=== PATIENT | male | born 1955 | race Caucasian/White ===

== ENCOUNTER 2016-07-07 19:11 | Observation (INO) | payer OTHER ==
[2016-07-06 23:50] VITALS: BP 98/71; PULSE 87; RESP 20; TEMP 97; O2SAT 94
[2016-07-07 19:35] VITALS: BP 111/62; PULSE 109; RESP 18; TEMP 97.6; O2SAT 91
[2016-07-07 19:55] LABS: AUTOMATED NEUTROPHIL # 7.8 TH/MM3 (1.8-7.7); BASOPHIL % 0.3 % (0.0-2.0); EOSINOPHIL % 0.1 % (0.0-4.0); HEMATOCRIT 39.7 % (39.0-51.0); LYMPH % 9.5 % (9.0-44.0); LYMPHOCYTE # 0.9 TH/MM3 (1.0-4.8); MEAN CORPUSCULAR HEMOGLOBIN 27.7 PG (27.0-34.0); NEUT % 86.1 % (16.0-70.0); PLATELET COUNT 204 TH/MM3 (150-450); RED BLOOD COUNT 4.73 MIL/MM3 (4.50-5.90); RED CELL DISTRIBUTION WIDTH 13.1 % (11.6-17.2); WHITE BLOOD COUNT 9.1 TH/MM3 (4.0-11.0)
[2016-07-07 19:59] VITALS: BP 95/69; PULSE 112; RESP 18; TEMP 97.6; O2SAT 91
--- NOTE | 2016-07-07 20:01 | PD ---
HPI Chief Complaint: Allergic/Adverse Reaction Time Seen by Provider: 19:41 Travel History International Travel<30 days: No Contact w/Intl Traveler<30days: No Traveled to known affect area: No History of Present Illness HPI 60-year-old male here for evaluation of lightheadedness, some weakness, and purplish lips. Symptoms started at around noon today, and were worse at around 4:00 PM. The patient reports that he was exposed to aerosolized right Her today while at work. He had similar symptoms several years ago when he was exposed to isocyanate. In triage it was noted that his O2 saturation was 84% on room air. He denies dyspnea. No chest pain. No history of cardio pulmonary disease. [facility] Social History Tobacco Use: No Allergies-Medications (Allergen,Severity, Reaction): Coded Allergies: Isocyanate HDI (Verified Allergy, Unknown, 07/07/16) Reported Meds & Prescriptions Reported Meds & Active Scripts Active Reported Nexium (Esomeprazole DR) 40 Mg Capdr 40 Mg PO DAILY Review of Systems Except as stated in HPI: all other systems reviewed are Neg Physical Exam Narrative GENERAL: Pleasant, well-developed, well-nourished, comfortable, awake, alert, no acute distress. SKIN: Focused skin assessment warm/dry. Lips are cyanotic. Rest of body is without cyanosis. HEAD: Atraumatic. Normocephalic. EYES: Pupils equal and round. No scleral icterus. No injection or drainage. ENT: Mucous membranes pink and moist. Cyanotic lips. NECK: Trachea midline. No JVD. CARDIOVASCULAR: Regular rate and rhythm. RESPIRATORY: No accessory muscle use. Clear to auscultation. Breath sounds equal bilaterally. GASTROINTESTINAL: Abdomen soft, non-tender, nondistended. MUSCULOSKELETAL: No obvious deformities. No clubbing. No cyanosis. No edema. NEUROLOGICAL: Awake and alert. No obvious cranial nerve deficits. Motor grossly within normal limits. Normal speech. PSYCHIATRIC: Appropriate mood and affect; insight and judgment normal. Data Data Last Documented VS Vital Signs Date Time Temp Pulse Resp B/P Pulse Ox O2 Delivery O2 Flow Rate FiO2 07/07/16 21:00 92 Nasal Cannula 2.00 07/07/16 21:00 96 20 92/67 07/07/16 19:59 97.6 Orders Complete Blood Count With Diff (07/07/16 19:45) Comprehensive Metabolic Panel (07/07/16 19:45) D-Dimer (07/07/16 19:45) Act Partial Throm Time (Ptt) (07/07/16 19:45) Prothrombin Time / Inr (Pt) (07/07/16 19:45) Arterial Blood Gas (Abg) (07/07/16 19:45) Iv Access Insert/Monitor (07/07/16 19:45) Ecg Monitoring (07/07/16 19:45) Oximetry (07/07/16 19:45) Oxygen Administration (07/07/16 19:45) Chest, Single Ap (07/07/16 19:45) Sodium Chlor 0.9% 1000 Ml Inj (Ns 1000 M (07/07/16 20:15) Place In Observation (07/07/16 ) Vital Signs (Adult) Q4H (07/07/16 20:55) Activity Oob With Assistance (07/07/16 20:55) Facilities Clerk / Telemetry .CONTINUOUS (07/07/16 20:55) Diet Heart Healthy (07/08/16 Breakfast) Sodium Chloride 0.9% Flush (Ns Flush) (07/07/16 21:00) Sodium Chloride 0.9% Flush (Ns Flush) (07/07/16 21:00) Naloxone Inj (Narcan Inj) (07/07/16 21:00) Resp Oxygen Abraham C Titrat 1-4 L (07/07/16 ) Pantoprazole (Protonix) (07/08/16 09:00) Admit Order (Ed Use Only) (07/07/16 21:05) Labs Laboratory Tests Test 07/07/16 07/07/16 19:45 20:00 White Blood Count 9.1 TH/MM3 Red Blood Count 4.73 MIL/MM3 Hemoglobin 13.1 GM/DL Hematocrit 39.7 % Mean Corpuscular Volume 84.0 FL Mean Corpuscular Hemoglobin 27.7 PG Mean Corpuscular Hemoglobin 33.0 % Concent Red Cell Distribution Width 13.1 % Platelet Count 204 TH/MM3 Mean Platelet Volume 8.4 FL Neutrophils (%) (Auto) 86.1 % Lymphocytes (%) (Auto) 9.5 % Monocytes (%) (Auto) 4.0 % Eosinophils (%) (Auto) 0.1 % Basophils (%) (Auto) 0.3 % Neutrophils # (Auto) 7.8 TH/MM3 Lymphocytes # (Auto) 0.9 TH/MM3 Monocytes # (Auto) 0.4 TH/MM3 Eosinophils # (Auto) 0.0 TH/MM3 Basophils # (Auto) 0.0 TH/MM3 CBC Comment DIFF FINAL Differential Comment Prothrombin Time 11.5 SEC Prothromb Time International 1.0 RATIO Ratio Activated Partial 25.4 SEC Thromboplast Time D-Dimer Quantitative (PE/DVT) 0.19 MG/L FEU Sodium Level 141 MEQ/L Potassium Level 4.2 MEQ/L Chloride Level 106 MEQ/L Carbon Dioxide Level 25.4 MEQ/L Anion Gap 10 MEQ/L Blood Urea Nitrogen 17 MG/DL Creatinine 1.20 MG/DL Estimat Glomerular Filtration 61 ML/MIN Rate Random Glucose 110 MG/DL Calcium Level 8.9 MG/DL Total Bilirubin 0.6 MG/DL Aspartate Amino Transf 29 U/L (AST/SGOT) Alanine Aminotransferase 28 U/L (ALT/SGPT) Alkaline Phosphatase 52 U/L Total Protein 7.2 GM/DL Albumin 4.1 GM/DL Blood Gas Puncture Site RT RADIAL Blood Gas Patient Temperature 98.6 Blood Gas HCO3 23 mmol/L Blood Gas Base Excess -0.7 mmol/L Blood Gas Oxygen Saturation 83 % Arterial Blood pH 7.43 Arterial Blood Partial 36 mmHG Pressure CO2 Arterial Blood Partial 96 mmHG Pressure O2 Arterial Blood Oxygen Content 15.3 Vol % Arterial Blood 0.2 % Carboxyhemoglobin Arterial Blood Methemoglobin 11.6 % Blood Gas Hemoglobin 13.0 G/DL Oxygen Delivery Device NASAL CANNULA Blood Gas Liter Flow 2 L/M [facility] Medical Decision Making Medical Screen Exam Complete: Yes Emergency Medical Condition: Yes Interpretation(s) EKG: Sinus, rate 108, normal axis, normal intervals, poor R-wave progression, no acute ischemic abnormality. Differential Diagnosis Methemoglobinemia, carbon monoxide poisoning, cyanide poisoning, pulmonary embolism less likely, ACS, anemia Narrative Course Initial vital signs show heart rate 109, blood pressure 111/62, pulse ox 83% on room air, oral temp of 97.6F. CBC is unremarkable. CMP is unremarkable. ABG shows pH 7.43, PCO2 36, PO2 96, met hemoglobin 11.6%, carboxyhemoglobin 0.2% Chest x-ray: No acute cardiopulmonary disease. Poisoning control contacted, and I spoke with the on-call lumite injector. She recommends admitting the patient for overnight observation on nasal cannula only. No methylene blue as the patient is currently resting comfortably awake, alert, no respiratory distress. He is a little bit lightheaded, but his symptoms are not severe enough to warrant methylene blue at this time. Case discussed with hospitalist Dr. Alonso who will admit the patient to her service for overnight observation with repeat ABG in the morning. Patient was made aware of all findings and plan for admission. Diagnosis Primary Impression: Methemoglobinemia Micheal Claire MD July 07, 2016 20:01
[2016-07-07 20:03] LABS: CHLORIDE 106 MEQ/L (98-107); POTASSIUM 4.2 MEQ/L (3.5-5.1); SODIUM (NA) 141 MEQ/L (136-145)
--- NOTE | 2016-07-07 20:04 | RADHPO ---
EXAM DATE/TIME: 07/07/2016 19:53 [place] COMPARISON: No previous studies available for comparison. INDICATIONS : Syncopal episode, weakness. MEDICAL HISTORY : None. SURGICAL HISTORY : None. ENCOUNTER: Initial ACUITY: 1 day PAIN SCORE: 0/10 LOCATION: chest FINDINGS: A single view of the chest demonstrates the lungs to be symmetrically aerated without evidence of mas s, infiltrate or effusion. The cardiomediastinal contours are unremarkable. Osseous structures are intact. CONCLUSION: No evidence of acute cardiopulmonary disease. Giovanny Zavala MD on July 07, 2016 at 20:02 Board Certified Radiologist. This report was verified electronically.
[2016-07-07 20:07] LABS: ANION GAP 10 MEQ/L (5-15); BICARBONATE 25.4 MEQ/L (21.0-32.0); BLOOD UREA NITROGEN 17 MG/DL (7-18)
[2016-07-07 20:10] LABS: ALT (GPT) 28 U/L (12-78); AST (GOT) 29 U/L (15-37); GLOMERULAR FILTRATION RATE 61 ML/MIN (>89)
[2016-07-07 20:13] LABS: ALKALINE PHOSPHATASE 52 U/L (45-117)
[2016-07-07] MEDS ORDERED: NEXI40CA PO (20:13)
[2016-07-07 20:14] LABS: TOTAL BILIRUBIN ADULT 0.6 MG/DL (0.2-1.0)
[2016-07-07 20:15] LABS: BLOOD GAS BASE EXCESS -0.7 mmol/L (-2-2); BLOOD GAS CARBOXYHEMOGLOBIN 0.2 % (0-4); BLOOD GAS HCO3 23 mmol/L (22-26); BLOOD GAS METHEMOGLOBIN 11.6 % (0-2); BLOOD GAS O2 HGB SATURATION 83 % (90-100); BLOOD GAS OXYGEN CONTENT 15.3 Vol % (12.0-20.0); BLOOD GAS PCO2 36 mmHG (38-42); BLOOD GAS PO2 96 mmHG (61-120); TEMP CORR TO 98.6
[2016-07-07] MEDS ORDERED: SODIUM CHLOR 0.9% 1000 ML INJ 1,000 ML IV ONE (20:15)
[2016-07-07 20:16] LABS: CRITICAL VALUE YES; DRAW SITE RT RADIAL; LITER FLOW 2 L/M; NUMBER OF ARTERIAL PUNCTURES 2; OXYGEN DEVICE NASAL CANNULA; STAT YES; ULNAR PULSE PRESENT
[2016-07-07 20:18] LABS: HEMO FLAGS DIFF FINAL
[2016-07-07 21:00] VITALS: BP 92/67; PULSE 96; RESP 20; O2SAT 92
[2016-07-07] MEDS ORDERED: NALOXONE HCL 0.4 MG/ML AMP IV PRN (21:00)
[2016-07-07] MEDS ORDERED: SODIUM CHLORIDE 0.9% FLUSH 10 ML FLUSH IV FLUSH PRN (21:00)
[2016-07-07] MEDS: SODIUM CHLORIDE 0.9% FLUSH 10 ML FLUSH IV FLUSH SCH (21:00)
[2016-07-07 21:20] LABS: APTT (PATIENT) 25.4 SEC (24.3-30.1); PROTHROMBIN TIME - PATIENT 11.5 SEC (9.8-11.6)
[2016-07-07 22:07] VITALS: BP 93/74
--- NOTE | 2016-07-07 22:34 | EKG ---
Date Performed: 07/07/2016 Time Performed: 19:36:38 PTAGE: 60 years EKG: Sinus tachycardia Poor R wave progression - probable normal variant Borderline ECG NO PREVIOUS TRACING DOCTOR: Trent Thomas Interpretating Date/Time 07/07/2016 22:32:56
[2016-07-07 22:50] VITALS: BP 98/71; PULSE 87; RESP 20; TEMP 97; O2SAT 94
[2016-07-07 23:00] VITALS: PULSE 87
[2016-07-08 04:00] VITALS: BP 106/74; PULSE 89; RESP 20; TEMP 96.1; O2SAT 95
[2016-07-08 08:00] VITALS: BP 134/94; PULSE 74; RESP 18; TEMP 97.2; O2SAT 93
[2016-07-08 08:39] LABS: BLOOD GAS BASE EXCESS -1.5 mmol/L (-2-2); BLOOD GAS CARBOXYHEMOGLOBIN 0.8 % (0-4); BLOOD GAS HCO3 23 mmol/L (22-26); BLOOD GAS METHEMOGLOBIN 1.7 % (0-2); BLOOD GAS O2 HGB SATURATION 93 % (90-100); BLOOD GAS OXYGEN CONTENT 15.9 Vol % (12.0-20.0); BLOOD GAS PCO2 41 mmHG (38-42); BLOOD GAS PO2 113 mmHG (61-120); CRITICAL VALUE NO; DRAW SITE RT RADIAL; LITER FLOW 2 L/M; NUMBER OF ARTERIAL PUNCTURES 1; OXYGEN DEVICE NASAL CANNULA; STAT NO; TEMP CORR TO 98.6; ULNAR PULSE PRESENT
[2016-07-08 08:58] VITALS: PULSE 75
[2016-07-08] MEDS ORDERED: PANTOPRAZOLE SOD 40 MG DELAYED RELEASE TAB PO SCH (09:00)
[2016-07-08] MEDS: SODIUM CHLORIDE 0.9% FLUSH 10 ML FLUSH IV FLUSH SCH (09:05)
[2016-07-08 10:08] VITALS: O2SAT 96
--- NOTE | 2016-07-08 10:26 | HHI.HP ---
[facility] Physician Christina Reis MD Admission Diagnosis methemoglobinemia Diagnoses: (1) Methemoglobinemia Chief Complaint: Lightheadedness and dizziness Travel History International Travel<30 Days: No Contact w/Intl Traveler <30 Da: No Traveled to Known Affected Are: No History of Present Illness 60-year-old male with a history of GERD him to the ED yesterday for evaluation of lightheadedness, dizziness and bluish lips after exposure to isocyanide. 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 However yesterday around 12 PM he stopped by a shop where his care was being sprayed with a derivative of isocyanide. He was only exposed to it for only 10 minutes. Patient return to work, around 2 PM as a student up he became lightheaded and dizzy however did not have any loss of consciousness. He was noted to have bluish lips by his coworkers. Around 6 PM patient went to a walk-in clinic the pulse ox was obtained and patient advised to seek medical intervention to the nearest emergency department. While in the ED, patient was found to have an ABG maintain methemoglobin of 11.6 for which poison control was called and patient's started on nasal cannula 2 L of oxygen. During my exam , this morning patient has no complaint of chest pain or shortness of breath. He denies any dizziness. Review of Systems Other 12 systems reviewed and are negative except for the one mentioned in the history of present illness Past Family Social History Past Medical History GERD Past Surgical History Rhinoplasty Reported Medications Nexium (Esomeprazole DR) 40 Mg Capdr 40 Mg PO DAILY Allergies: Coded Allergies: Isocyanate HDI (Verified Allergy, Unknown, 07/07/16) Family History Both parents lived into their 90s and denied any heart disease Social History Patient denies tobacco, alcohol or illicit drug intake Physical Exam Vital Signs Vital Signs Date Time Temp Pulse Resp B/P Pulse Ox O2 Delivery O2 Flow Rate FiO2 07/08/16 10:08 96 Nasal Cannula 2.00 07/08/16 08:00 97.2 74 18 134/94 93 07/08/16 04:00 96.1 89 20 106/74 95 07/07/16 23:00 87 07/07/16 22:50 97.0 87 20 98/71 94 07/07/16 22:07 92 20 93/74 07/07/16 21:00 92 Nasal Cannula 2.00 07/07/16 21:00 96 20 92/67 92 Nasal Cannula 2 07/07/16 20:06 107 18 94 Nasal Cannula 2 07/07/16 19:59 97.6 112 18 95/69 91 07/07/16 19:35 97.6 109 18 111/62 91 Nasal Cannula 2 07/07/16 19:35 92 Nasal Cannula 2 Physical Exam GENERAL: This is a well-nourished, well-developed patient, in no apparent distress. SKIN: No rashes, ecchymoses or lesions. Cool and dry. HEAD: Atraumatic. Normocephalic. No temporal or scalp tenderness. EYES: Pupils equal round and reactive. Extraocular motions intact. No scleral icterus. No injection or drainage. ENT: Nose without bleeding, purulent drainage or septal hematoma. Throat without erythema, tonsillar hypertrophy or exudate. Uvula midline. Airway patent. NECK: Trachea midline. No JVD or lymphadenopathy. Supple, nontender, no meningeal signs. CARDIOVASCULAR: Regular rate and rhythm without murmurs, gallops, or rubs. RESPIRATORY: Clear to auscultation. Breath sounds equal bilaterally. No wheezes , rales, or rhonchi. GASTROINTESTINAL: Abdomen soft, non-tender, nondistended. No hepato-splenomegaly , or palpable masses. No guarding. MUSCULOSKELETAL: Extremities without clubbing, cyanosis, or edema. No joint tenderness, effusion, or edema noted. No calf tenderness. Negative Homans sign bilaterally. NEUROLOGICAL: Awake and alert. Cranial nerves II through XII intact. Motor and sensory grossly within normal limits. Five out of 5 muscle strength in all muscle groups. Normal speech. Laboratory Laboratory Tests Test 07/07/16 07/07/16 07/08/16 19:45 20:00 08:30 White Blood Count 9.1 Red Blood Count 4.73 Hemoglobin 13.1 Hematocrit 39.7 Mean Corpuscular Volume 84.0 Mean Corpuscular Hemoglobin 27.7 Mean Corpuscular Hemoglobin 33.0 Concent Red Cell Distribution Width 13.1 Platelet Count 204 Mean Platelet Volume 8.4 Neutrophils (%) (Auto) 86.1 Lymphocytes (%) (Auto) 9.5 Monocytes (%) (Auto) 4.0 Eosinophils (%) (Auto) 0.1 Basophils (%) (Auto) 0.3 Neutrophils # (Auto) 7.8 Lymphocytes # (Auto) 0.9 Monocytes # (Auto) 0.4 Eosinophils # (Auto) 0.0 Basophils # (Auto) 0.0 CBC Comment DIFF FINAL Differential Comment Prothrombin Time 11.5 Prothromb Time International 1.0 Ratio Activated Partial 25.4 Thromboplast Time D-Dimer Quantitative (PE/DVT) 0.19 Sodium Level 141 Potassium Level 4.2 Chloride Level 106 Carbon Dioxide Level 25.4 Anion Gap 10 Blood Urea Nitrogen 17 Creatinine 1.20 Estimat Glomerular Filtration 61 Rate Random Glucose 110 Calcium Level 8.9 Total Bilirubin 0.6 Aspartate Amino Transf 29 (AST/SGOT) Alanine Aminotransferase 28 (ALT/SGPT) Alkaline Phosphatase 52 Total Protein 7.2 Albumin 4.1 Blood Gas Puncture Site RT RADIAL RT RADIAL Blood Gas Patient Temperature 98.6 98.6 Blood Gas HCO3 23 23 Blood Gas Base Excess -0.7 -1.5 Blood Gas Oxygen Saturation 83 93 Arterial Blood pH 7.43 7.37 Arterial Blood Partial 36 41 Pressure CO2 Arterial Blood Partial 96 113 Pressure O2 Arterial Blood Oxygen Content 15.3 15.9 Arterial Blood 0.2 0.8 Carboxyhemoglobin Arterial Blood Methemoglobin 11.6 1.7 Blood Gas Hemoglobin 13.0 12.0 Oxygen Delivery Device NASAL CANNULA NASAL CANNULA Blood Gas Liter Flow 2 2 Result Diagram: 07/07/16194407/07/161944 Imaging Last Impressions Chest X-Ray 07/07/161944 Signed Impressions: Service Date/Time: Thursday, July 07, 2016 19:53 - CONCLUSION: No evidence of acute cardiopulmonary disease. Giovanny Zavala MD Assessment and Plan Problem List: (1) Methemoglobinemia ICD Code: D74.9 Status: Acute Assessment and Plan 60-year-old man with Methemoglobinemia Chest x-ray noted and review by me without any cardio pulmonary disease Admission ABG with Methemoglobin 11.6 however repeat of 1.7 post treatment with 2 L nasal cannula oxygen Otherwise, Coags, CBC and BMP unremarkable Patient's condition resolved and vitals remained stable GERD Patient to continue outpatient medications Patient will be discharged home today Discharge patient to home Condition on discharge: Improved Regular Diet as tolerated Ad Gricelda activity Rx written: None Follow-up with primary care physician in 1 week Code Status Full code Discussed Condition With Patient Dale Reis MD July 08, 2016 10:26
[2016-07-08 12:00] VITALS: BP 119/81; PULSE 70; RESP 18; TEMP 97.2; O2SAT 93
== END 2016-07-08 11:55 | disposition home or self-care (01) ==
LOC: PHED 19:11 → PHEDA 21:05 → PH3A 22:16
PROVIDERS: ADMIT Hospitalist; ATTEND Hospitalist
DX: D74.9 Methemoglobinemia, unspecified (principal); K21.9 Gastro-esophageal reflux disease without esophagitis; R94.31 Abnormal electrocardiogram [ECG] [EKG]
CPT/HCPCS: 36600; 71010; 80053; 82805; 85025; 85379; 85610; 85730; 93005; 96360; 99285; G0378; J7030

== ENCOUNTER 2017-11-22 03:01 | Observation (INO) ==
--- NOTE | 2017-11-22 03:25 | ED ---
HPI General Chief Complaint: Chest Pain Stated Complaint: Chest pain x 1/2 hr Time Seen by Provider: 11/22/17 03:14 Source: patient and family Mode of arrival: ambulatory Limitations: no limitations History of Present Illness HPI narrative: 62-year-old male presents to the emergency department by private transportation the care of his spouse for evaluation of chest pain. Patient rates his pain 3/10 in intensity but at home was 7/10 in intensity and awaken him from sleep. Patient states he felt well all day Thursday with no concerns or complaints or injury. Patient states he was awakened from sleep and went up to go the bathroom and symptoms do not improve so took ibuprofen and 181 mg dose of aspirin without symptom improvement. Denies any referred neck jaw back shoulder arm or abdominal pain. Denies any shortness of breath sweats nausea or vomiting. No near syncope syncope or dizziness. No pleuritic chest pain or worsening of symptoms with deep inspiratory effort or movement. Patient states pain is tight squeeze dull and retrosternal. No recent long distance travel protracted bedrest or surgical procedure. Patient denies personal history of tobaccoism hypertension dyslipidemia diabetes or premature onset heart disease in the family. Parents lived to their 90s. Patient is otherwise in good health. Patient is unable to identify exacerbating or alleviating factors. MD complaint: chest pain STEMI Alert: No Onset (ago): minute(s) Duration: constant Onset: awoke with symptoms Pain location: substernal Severity: moderate Quality: tightness and dull Pain radiation: none Relieving factors: nothing Exacerbating factors: nothing Context: other (denies) Treatments prior to arrival chest pain: aspirin (81 mg) and other (ibuprofen) Related Data Home Medications Medication Instructions Recorded Confirmed aspirin [Aspirin Childrens] 81 mg PO DAILY 11/22/17 11/22/17 ibuprofen 600 mg PO TID 11/22/17 11/22/17 saw palmetto 320 mg PO DAILY 11/22/17 11/22/17 Allergies Allergy/AdvReac Type Severity Reaction Status Date / Time Isocyanate HDI Allergy Rash Uncoded 11/22/17 03:14 Review of Systems ROS: all other systems reviewed are negative PMFSH History History Provided By: Patient (methemoglobinemia) Social History Social History Substance History: No History of Abuse Second Hand Smoke Exposure: No Smoking Status: Former smoker How Often Do You Have a Drink Containing Alcohol: Monthly or less Recent Travel in [facility] within the Last 8 Weeks: No Recent Out of Country Travel within the Last 8 Weeks: No Exam Narrative Exam Narrative: GENERAL: Well-nourished, well-developed patient. SKIN: Focused skin assessment warm/dry. HEAD: Normocephalic. EYES: No scleral icterus. No injection or drainage. NECK: Supple, trachea midline. No JVD or lymphadenopathy. CARDIOVASCULAR: Regular rate and rhythm without murmurs, gallops, or rubs. RESPIRATORY: Breath sounds equal bilaterally. No accessory muscle use. GASTROINTESTINAL: Abdomen soft, non-tender, nondistended. MUSCULOSKELETAL: No cyanosis, or edema. BACK: Nontender without obvious deformity. No CVA tenderness. Course Initial Documented Vital Signs Temperature 98.2 F 11/22/17 03:07 Pulse Rate 69 11/22/17 03:07 Respiratory Rate 16 11/22/17 03:07 Blood Pressure 139/100 H 11/22/17 03:07 Pulse Oximetry 99 11/22/17 03:07 Last Documented Vital Signs Temperature 98.2 F 11/22/17 03:07 Pulse Rate 72 11/22/17 04:19 Respiratory Rate 16 11/22/17 04:19 Blood Pressure 111/84 11/22/17 04:19 Pulse Oximetry 98 11/22/17 04:19 Medical Decision Making [facility] Narrative Medical decision making narrative: 62-year-old male presents to the emergency department with retrosternal chest pain presently 3/10 in intensity tightness dullness nonradiating without shortness of breath nausea vomiting diaphoresis no syncope or syncope. Patient placed on cardiac/vascular sonographer with continuous pulse oximetry IV access obtained specimens collected and sent for resulting patient ordered to receive aspirin 162 mg by mouth as well as sublingual nitroglycerin to be administered to evaluate for resolution of chest pain. EKG performed sinus rhythm rate [address] elevation injury pattern or ectopy noted. At 4:18 AM patient is chest pain-free pain is 0/10 in intensity after 3 sublingual nitroglycerin. Chest x-ray reveals no acute process and first set of cardiac enzymes are found to be in normal range. Patient is informed of imaging results lab results and EKG and recommendation for chest pain center protocol observation admission with which she is agreeable call placed to [facility] Dr Ezio VUONG. Medical Screen Exam Complete: Yes Emergency Medical Condition: Yes Differential Diagnosis Differential Diagnosis: Chest pain, atypical chest pain, ACS, SC, PE, dissection , aneurysm, esophageal spasm, cholecystitis, pancreatitis, peptic ulcer disease , gastritis Medical Records Medical records reviewed: Yes I reviewed the patient's medical records. Lab Data Lab results reviewed: Yes I reviewed the patient's lab results. Result diagrams: 11/22/17 03:10 11/22/17 03:10 Lab Results 11/22/17 11/22/17 11/22/17 Range/Units 03:10 03:10 03:10 CBC w Diff Auto diff final WBC 5.8 (4.0-11.0) th/mm3 RBC 4.78 (4.50-5.90) mil/mm3 Hgb 13.6 (13.0-17.0) gm/dL Hct 41.3 (39.0-51.0) % MCV 86.3 (80.0-100.0) fL MCH 28.4 (27.0-34.0) pg MCHC 32.9 (32.0-36.0) % RDW 12.9 (11.6-17.2) % Plt Count 212 (150-450) th/mm3 MPV 8.9 (7.0-11.0) fL Neut % (Auto) 56.1 (16.0-70.0) % Lymph % (Auto) 32.9 (9.0-44.0) % [place] % (Auto) 8.1 H (0.0-8.0) % Eos % (Auto) 2.3 (0.0-4.0) % Baso % (Auto) 0.6 (0.0-2.0) % Neut # (Auto) 3.3 (1.8-7.7) th/mm3 Lymph # (Auto) 1.9 (1.0-4.8) th/mm3 [place] # (Auto) 0.5 (0.0-0.9) th/mm3 Eos # (Auto) 0.1 (0.0-0.4) th/mm3 Baso # (Auto) 0.0 (0.0-0.2) th/mm3 WBC Differential . Differential Comment . Sodium 143 (136-145) meq/L Potassium 3.9 (3.5-5.1) meq/L Chloride 105 (98-107) meq/L Carbon Dioxide 30.1 (21.0-32.0) meq/L Anion Gap 8 (5-15) meq/L BUN 13 (7-18) mg/dL Creatinine 1.30 (0.60-1.30) mg/dL Estimated GFR 56 L (>89) mL/min Random Glucose 97 (74-106) mg/dL Calcium 8.9 (8.5-10.1) mg/dL Magnesium 2.4 (1.5-2.5) mg/dL Total Bilirubin 0.4 (0.2-1.0) mg/dL AST 10 L (15-37) U/L ALT 25 (12-78) U/L Alkaline Phosphatase 57 (45-117) U/L Total Creatine Kinase 71 (39-308) U/L Troponin I Less than 0.02 L (0.02-0.05) ng/mL B-Natriuretic Peptide 11 (0-100) pg/mL Total Protein 7.0 (6.4-8.2) g/dL Albumin 3.9 (3.4-5.0) g/dL Lipase 198 (73-393) U/L Imaging Data Radiologist's impression: Chest X-Ray 11/22/17 03:14 CONCLUSION: 1. No acute abnormality or significant interval change. ECG Data EKG Prior to Arrival: No Attestation: I personally reviewed and interpreted this ECG as follows: Prior ECG tracings: not available for review Interpretation: EKG: Normal sinus rhythm rate [address] elevation injury pattern or ectopy noted Discharge Plan Discharge Disposition Patient Disposition: 30 Still Patient Discharge Condition Condition: Stable Discharge Details Diagnosis: Chest pain Physicians Team ED Provider: Jackie Ayoub Primary Care Provider: Donny Jackson Attending Provider: Shell Holguin Status ED Status: Admitted Observation Patient
[2017-11-22 03:48] LABS: Baso % (Auto) 0.6 % (0.0-2.0); Eos # (Auto) 0.1 th/mm3 (0.0-0.4); Eos % (Auto) 2.3 % (0.0-4.0); Hematocrit 41.3 % (39.0-51.0); Hemoglobin 13.6 gm/dL (13.0-17.0); Lymph # (Auto) 1.9 th/mm3 (1.0-4.8); Lymph % (Auto) 32.9 % (9.0-44.0); Mean Corpuscular HGB Conc 32.9 % (32.0-36.0); Mean Corpuscular Hemoglobin 28.4 pg (27.0-34.0); Mean Corpuscular Volume 86.3 fL (80.0-100.0); Mean Platelet Volume 8.9 fL (7.0-11.0); Mono # (Auto) 0.5 th/mm3 (0.0-0.9); Mono % (Auto) 8.1 % (0.0-8.0); Neut # (Auto) 3.3 th/mm3 (1.8-7.7); Neut % (Auto) 56.1 % (16.0-70.0); Platelet Count 212 th/mm3 (150-450); Red Blood Count 4.78 mil/mm3 (4.50-5.90); Red Cell Distribution Width 12.9 % (11.6-17.2); White Blood Count 5.8 th/mm3 (4.0-11.0)
[2017-11-22 03:59] LABS: Chloride 105 meq/L (98-107); Potassium 3.9 meq/L (3.5-5.1); Sodium 143 meq/L (136-145)
--- NOTE | 2017-11-22 03:59 | XR ---
EXAM DATE: 11/22/2017 3:47 AM EDT AGE/SEX: 62 years / Male INDICATIONS: Chest pain. CLINICAL DATA: This is the patient's initial encounter. Patient reports that signs and symptoms have been present for 1 day and indicates a pain score of 4/10. MEDICAL/SURGICAL HISTORY: None. None. COMPARISON: [facility], CHEST SINGLE AP, 07/07/2016. . FINDINGS: No new focal pleural or parenchymal opacities. The cardiomediastinal contours are unremarkable. Osse ous structures are intact. CONCLUSION: 1. No acute abnormality or significant interval change. Electronically signed by: Torrey Ron MD 11/22/2017 3:58 AM EDT
[2017-11-22] MEDS ORDERED: Sodium Chlor 0.9% Inj 500 ML IV.SIG SCH (04:00)
[2017-11-22 04:03] LABS: Calcium 8.9 mg/dL (8.5-10.1)
[2017-11-22 04:04] LABS: Albumin 3.9 g/dL (3.4-5.0); Anion Gap 8 meq/L (5-15); Blood Urea Nitrogen 13 mg/dL (7-18); Carbon Dioxide 30.1 meq/L (21.0-32.0); Glucose,Random 97 mg/dL (74-106); Lipase 198 U/L (73-393); Magnesium 2.4 mg/dL (1.5-2.5)
[2017-11-22 04:06] LABS: Alanine Aminotransferase 25 U/L (12-78); Aspartate Aminotransferase 10 U/L (15-37)
[2017-11-22 04:07] LABS: Glomerular Filtration Rate 56 mL/min (>89)
[2017-11-22 04:09] LABS: Alkaline Phosphatase 57 U/L (45-117)
[2017-11-22 04:10] LABS: Creatine Kinase 71 U/L (39-308)
[2017-11-22 04:50] LABS: Activated Partial Thrombo Time 26.9 sec (24.3-30.1); INR 1.1 Ratio; Prothrombin Time 10.7 sec (9.8-11.6)
[2017-11-22 07:58] LABS: Creatine Kinase 55 U/L (39-308)
[2017-11-22] MEDS ORDERED: Aspirin 325 MG Tablet PO SCH (09:00)
--- NOTE | 2017-11-22 09:50 | P.HP ---
History of Present Illness Primary Care Physician: Donny Jackson MD Chief Complaint: Chest pain History of Present Illness: 62-year-old male with known history of enlarged prostate who presented the hospital because acute onset of chest pain. Patient states that he was in normal state of health and went to bed approximately 9 PM last night. Patient woke up at 3 AM in order to use the restroom. Patient was having difficulty time urinating and had to strain in order to urinate. When he is walking back to the bed he started developing a gripping type chest pain in his lower mid chest which she ranks as 7/10 on pain scale. The patient denied any radiation to the neck, back, shoulder, arm. Denied any nausea, vomiting, diaphoresis, shortness of breath, dyspnea, lightheadedness, dizziness. Patient states that after 15 minutes the pain he got up and took 3 Tylenol and one aspirin. Patient states that he waited another 15 minutes without any resolution of the pain so he came to emergency department for evaluation upon evaluation emergency department patient was given aspirin, nitroglycerin. After the second nitroglycerin and administration of oxygen the patient states that his pain resolved completely. Patient has not had any recurrence. Patient had workup done and did not indicate any acute coronary syndrome. Troponins remain negative. Patient was recommended observation chest pain center. - Diagnosis (1) Chest pain Review of Systems All other systems reviewed negative except as stated in HPI Cardiovascular: Reports chest pain [facility] - History History Provided By: Patient - Medical History Medical History: Medical History (Last Reviewed 11/22/17 @ 09:48 by NASREEN Chau) History of prostate disorder - Surgical History Surgical History: Surgical History (Last Reviewed 11/22/17 @ 09:48 by NASREEN Chau) History of cataract surgery - Family History Family History: Family History (Last Updated 11/22/17 @ 09:41 by NASREEN Chau) Mother Family history of Alzheimer's disease Father History of diabetes mellitus - Tobacco History Second Hand Smoke Exposure: No Tobacco Use In Past 30 Days: No Smoking Status: Never smoker - Alcohol History How Often Do You Have a Drink Containing Alcohol: Never - Substance Use History Substance History: No History of Abuse - Travel History Recent Travel in the [place] Within the Last 8 Weeks: No Recent Travel Out of the Country Within the Last 8 Weeks: No - Immunization History Tetanus Immunization: Unable to Assess Hx Influenza Vaccine This Season: Yes Medications and Allergies Active Medications: Active Medications Aspirin (Aspirin) 325 mg PO DAILY [facility] Last Admin: 11/22/17 09:03 Dose: 325 mg Nitroglycerin (Nitrostat Sl) 0.4 mg SL Q5M PRN PRN Reason: CHEST PAIN Sodium Chloride (Ns Flush) 2 ml IV.FLUSH UNSCH PRN PRN Reason: FLUSH AFTER USING IV ACCESS Sodium Chloride (Ns Flush) 2 ml IV.FLUSH BID [facility] Last Admin: 11/22/17 09:03 Dose: 2 ml Sodium Chloride (Ns Flush) 2 ml IV.FLUSH PRN PRN PRN Reason: FLUSH AFTER USING IV ACCESS Allergies Allergy/AdvReac Type Severity Reaction Status Date / Time Isocyanate HDI Allergy Rash Uncoded 11/22/17 03:14 Home Medications Medication Instructions Recorded Confirmed Type aspirin [Aspirin Childrens] 81 mg PO DAILY 11/22/17 11/22/17 History ibuprofen 600 mg PO TID 11/22/17 11/22/17 History saw palmetto 320 mg PO DAILY 11/22/17 11/22/17 History Exam Vital signs: Vital Signs 11/22/17 03:07 11/22/17 03:10 11/22/17 03:19 Temperature 98.2 F Pulse Rate 69 72 Respiratory Rate 16 Blood Pressure 139/100 H Pulse Oximetry 99 99 11/22/17 03:20 11/22/17 03:25 11/22/17 03:30 Temperature Pulse Rate 66 Respiratory Rate 18 16 Blood Pressure 142/98 H 137/78 Pulse Oximetry 99 98 11/22/17 03:43 11/22/17 03:45 11/22/17 03:50 Temperature Pulse Rate 72 Respiratory Rate 16 16 16 Blood Pressure 102/80 Pulse Oximetry 11/22/17 04:19 11/22/17 05:56 11/22/17 07:15 Temperature 97.4 F L 98.9 F Pulse Rate 72 60 61 Respiratory Rate 16 18 21 Blood Pressure 111/84 120/76 123/82 Pulse Oximetry 98 96 95 11/22/17 08:18 Temperature Pulse Rate Respiratory Rate Blood Pressure Pulse Oximetry 96 Intake & Output 11/21/17 11/22/17 11/22/17 18:59 06:59 18:59 Intake Total 500 / 500 0 / 0 Output Total 200 / 200 Balance 500 / 500 -200 / -200 Weight 80 kg Intake: IV 500 / 500 NS Inj 500 ML @ 50 mls/hr IV. 500 / 500 SIG .Q10H ROBIN Rx#:[id number] Oral 0 / 0 Output: Urine 200 / 200 Other: # Voids 1 Date of Last Bowel Movement 11/21/17 Weight On Admission 80 kg Narrative: GENERAL: Well-developed, well-nourished, in no acute distress. alert and orientated HEENT: Head is normocephalic without any lesions or masses noted. Facial features are symmetric. Eyes: Pupils equal round reactive to light. Extraocular muscles are intact. Conjunctivae were clear. Oropharyngeal: Pharynx without any erythema edema. Tongue is midline without deviation. Buccal mucosa is moist without any masses or lesions NECK: Supple without any masses. Trachea midline no deviation. No JVD, no bruits are appreciated CARDIAC: Regular rhythm, regular rate. S1/S2 are heard. No murmurs gallops or rubs. LUNGS: Clear to auscultation bilaterally. No wheeze, rhonchi or rales. No use of accessory muscles on inspiration or expiration. ABDOMEN: Soft, nontender. Nondistended. Bowel sounds heard in all 4 quadrants. No organomegaly or masses. Negative rebound, negative guarding EXTREMITIES: No edema, pulses are equal bilaterally. No cyanosis or clubbing NEUROLOGY: Mood and affect appear appropriate. Cranial nerves II through XII grossly intact. Muscle strength 5/5 in upper and lower extremities bilaterally. Deep tendon reflexes are 2+ in upper and lower extremities bilaterally. Results - Labs CBC & Chem 7: 11/22/17 03:10 11/22/17 03:10 Labs: Laboratory Results - last 24 hr 11/22/17 11/22/17 11/22/17 03:10 03:10 03:10 CBC w Diff Auto diff final WBC 5.8 RBC 4.78 Hgb 13.6 Hct 41.3 MCV 86.3 MCH 28.4 MCHC 32.9 RDW 12.9 Plt Count 212 MPV 8.9 Neut % (Auto) 56.1 Lymph % (Auto) 32.9 Stone % (Auto) 8.1 H Eos % (Auto) 2.3 Baso % (Auto) 0.6 Neut # (Auto) 3.3 Lymph # (Auto) 1.9 Stone # (Auto) 0.5 Eos # (Auto) 0.1 Baso # (Auto) 0.0 WBC Differential . Differential Comment . PT INR APTT Sodium 143 Potassium 3.9 Chloride 105 Carbon Dioxide 30.1 Anion Gap 8 BUN 13 Creatinine 1.30 Estimated GFR 56 L Random Glucose 97 Calcium 8.9 Magnesium 2.4 Total Bilirubin 0.4 AST 10 L ALT 25 Alkaline Phosphatase 57 Total Creatine Kinase 71 Troponin I Less than 0.02 L B-Natriuretic Peptide 11 Total Protein 7.0 Albumin 3.9 Lipase 198 11/22/17 11/22/17 03:10 06:55 CBC w Diff WBC RBC Hgb Hct MCV MCH MCHC RDW Plt Count MPV Neut % (Auto) Lymph % (Auto) Stone % (Auto) Eos % (Auto) Baso % (Auto) Neut # (Auto) Lymph # (Auto) Stone # (Auto) Eos # (Auto) Baso # (Auto) WBC Differential Differential Comment PT 10.7 INR 1.1 APTT 26.9 Sodium Potassium Chloride Carbon Dioxide Anion Gap BUN Creatinine Estimated GFR Random Glucose Calcium Magnesium Total Bilirubin AST ALT Alkaline Phosphatase Total Creatine Kinase 55 Troponin I Less than 0.02 L B-Natriuretic Peptide Total Protein Albumin Lipase - Imaging Impressions Chest X-Ray 11/22/17 03:14 CONCLUSION: 1. No acute abnormality or significant interval change. Caprini VTE Risk Assessment Caprini VTE Risk Assessment: No/Low Risk (score <= 1) Caprini Risk Assessment Model: Point Value = 1 Point Value = 2 Point Value = 3 Point Value = 5 Age 41-60 Minor surgery BMI > 25 kg/m2 Swollen legs Varicose veins or History of unexplained or recurrent spontaneous Oral contraceptives or hormone replacement Sepsis (< 1 month) Serious lung disease, including pneumonia (< 1 month) Abnormal pulmonary function Acute myocardial infarction Congestive heart failure (< 1 month) History of inflammatory bowel disease Medical patient at bed rest Age 61-74 Arthroscopic surgery Major open surgery (> 45 min) Laparoscopic surgery (> 45 min) Malignancy Confined to bed (> 72 hours) Immobilizing plaster cast Central venous access Age >= 75 History of VTE Family history of VTE Factor V Leiden Prothrombin [id number] Lupus anticoagulant Anticardiolipin antibodies Elevated serum homocysteine Heparin-induced thrombocytopenia Other congenital or acquired thrombophilia Stroke (< 1 month) Elective arthroplasty Hip, pelvis, or leg fracture Acute spinal cord injury (< 1 month) Prophylaxis Regimen: Total Risk Factor Score Risk Level Prophylaxis Regimen 0-1 Low Early ambulation 2 Moderate Order ONE of the following: *Sequential Compression Device (SCD) *Heparin 5000 units SQ BID 3-4 Higher Order ONE of the following medications: *Heparin 5000 units SQ TID *Enoxaparin/Lovenox 40 mg SQ daily (WT < 150 kg, CrCl > 30 mL/min) *Enoxaparin/Lovenox 30 mg SQ daily (WT < 150 kg, CrCl > 10-29 mL/min) *Enoxaparin/Lovenox 30 mg SQ BID (WT < 150 kg, CrCl > 30 mL/min) AND/OR *Sequential Compression Device (SCD) 5 or more Highest Order ONE of the following medications: *Heparin 5000 units SQ TID (Preferred with Epidurals) *Enoxaparin/Lovenox 40 mg SQ daily (WT < 150 kg, CrCl > 30 mL/min) *Enoxaparin/Lovenox 30 mg SQ daily (WT < 150 kg, CrCl > 10-29 mL/min) *Enoxaparin/Lovenox 30 mg SQ BID (WT < 150 kg, CrCl > 30 mL/min) AND *Sequential Compression Device (SCD) Assessment and Plan - Assessment (1) Chest pain Code(s): R07.9 - Chest pain, unspecified Status: Acute - Plan Chest pain -Patient with minimal risk factors include age and male -Patient has been ruled out for acute coronary event with serial cardiac enzymes that have remained negative -Serial EKG was reviewed by myself indicated sinus rhythm without any changes -Exercise stress test was performed and indicated -Continue aspirin, nitroglycerin as needed DVT prevention -Low risk, early ambulation Discharge Planning: Discharge home in stable condition Activity: Ad ramona. Diet: Regular diet Medication per medication reconciliation Follow-up with primary medical doctor in 1 week
--- NOTE | 2017-11-22 12:45 | TR ---
Date Performed: 11/22/2017 Time Performed: 11:42:48 DOCTOR: Emir Lim DRUG LIST: CLINICAL HISTORY: CHEST PAIN REASON FOR TEST: REASON FOR ENDING: Completed Protocol OBSERVATION: Arrhythmia: None Chest Pain: None CONCLUSION: Patient tolerated JALEESA protocol with Total Exercise Time=6:00 Maximum UD=191 % Max HR Achieved=85.0% Maximum FK=581/84, Testing stopped secondary to goals acheived, During peak exercis e, patien twas asymptomatic, upsloping ST segments, HR and BP appropriate response to exercise. Recov tavo period HR and BP returned to baseline COMMENTS: Conclusion: Normal treadmill exercise. No evidence of ischemia.
--- NOTE | 2017-11-22 14:00 | ECG ---
Date Performed: 11/22/2017 Time Performed: 03:06:03 PTAGE: 62 years EKG: Sinus rhythm NORMAL ECG INTERPRETATION BASED ON A DEFAULT AGE OF 40 YEARS PREVIOUS TRACING : 07/07/2016 19.36 DOCTOR: Erendira Monaco Interpretating Date/Time 11/22/2017 13:57:37
[2017-11-22 14:13] VITALS: BP 124/83; PULSE 61; RESP 19; TEMP 97.8; O2SAT 95
--- NOTE | 2017-11-22 14:14 | ECG ---
Date Performed: 11/22/2017 Time Performed: 06:00:26 PTAGE: 62 years EKG: SINUS BRADYCARDIA BORDERLINE ECG PREVIOUS TRACING : 11/22/2017 03.06 Since previous tracing, no significant change noted DOCTOR: Emir Lim Interpretating Date/Time 11/22/2017 14:12:52
== END 2017-11-22 14:20 | disposition home or self-care (01) ==
LOC: PHEDA 03:01 → PHED 03:01 → PHEDA 05:40 → PH3 05:45
PROVIDERS: ADMIT Family Medicine; ATTEND Family Medicine